=== PATIENT | female | born 1980 | race Caucasian/White ===

== ENCOUNTER 2018-05-31 18:54 | Emergency (ER) | payer OTHER ==
[2018-05-31] MEDS ORDERED: DIPHENHYDRAMINE HCL 50 MG/ML VIAL IV ONE (20:39)
[2018-05-31] MEDS ORDERED: RINGERS SOLUTION,LACTATED 1,000 ML IV ONE (20:39)
--- NOTE | 2018-05-31 20:43 | ER Document Report ---
ED Medical Screen (RME) - General Chief Complaint: Tremor Stated Complaint: SHAKING Time Seen by Provider: 05/31/18 20:36 Notes: Patient is a 37-year-old female presents to the emergency department for generalized tremors. Patient states she does have a history of dystonia and typically has tremors but told that her tremors typically get worse when she has some sort of infection. Patient states she started with generalized vaginal bleeding a few days ago. States she presented to her doctor who did a pelvic exam and told her she had bacterial vaginosis. States she was placed on Flagyl. Patient states today she has noticed that the tremors are "out of control." States typically takes Benadryl for these tremors but that is not helping. Patient states she is also noted increased vaginal bleeding to include clots. Patient states she has "pain everywhere." Upon examination she does have lower pelvic pain. GENERAL: Alert, interacts well. No acute distress. ABDOMEN: Soft, generalized bilateral pelvic pain. Non-distended. Bowel sounds present in all 4 quadrants. EXTREMITIES: Moves all 4 extremities spontaneously. No edema, normal radial and dorsalis pedis pulses bilaterally. No cyanosis. I have greeted and performed a rapid initial assessment of this patient. A comprehensive ED assessment and evaluation of the patient, analysis of test results and completion of the medical decision making process will be conducted by additional ED providers. TRAVEL OUTSIDE OF THE [place] IN LAST 30 DAYS: No - Related Data Allergies/Adverse Reactions: No Known Allergies Allergy (Unverified 05/31/18 19:02) Past Medical History - Social History Frequency of alcohol use: Occasional Renal/ Medical History: Denies: Hx Peritoneal Dialysis Past Surgical History: Reports: Hx Breast Surgery - biopsy, Hx Gynecologic Surgery - d&c, Hx Thyroid Surgery - partial, Hx Tonsillectomy Physical Exam - Vital signs Vitals: Temp Pulse Resp BP Pulse Ox 99.2 F 95 20 131/95 H 98 05/31/18 19:06 05/31/18 19:06 05/31/18 19:06 05/31/18 19:06 05/31/18 19:06 Course - Vital Signs Vital signs: Temp Pulse Resp BP Pulse Ox 99.2 F 95 20 131/95 H 98 05/31/18 19:06 05/31/18 19:06 05/31/18 19:06 05/31/18 19:06 05/31/18 19:06
[2018-05-31 22:28] LABS: ABSOLUTE BASOPHILS # (AUTO) 0.2 10^3/uL (0.0-0.2); ABSOLUTE EOSINOPHILS # (AUTO) 0.3 10^3/uL (0.0-0.6); ABSOLUTE LYMPHOCYTES (AUTO) 4.1 10^3/uL (0.5-4.7); ABSOLUTE MONOCYTES (AUTO) 1.3 10^3/uL (0.1-1.4); ABSOLUTE NEUT (AUTO) 6.1 10^3/uL (1.7-8.2); BASOPHILS % (AUTO) 1.3 % (0-2); EOSINOPHILS % (AUTO) 2.6 % (0-6); HEMATOCRIT 38.8 % (36.0-47.0); HEMOGLOBIN 13.7 g/dL (12.0-15.5); LYMPHOCYTES % (AUTO) 34.4 % (13-45); MEAN CORPUSCULAR HEMOGLOBIN 31.3 pg (27.0-33.4); MEAN CORPUSCULAR HGB CONC 35.3 g/dL (32.0-36.0); MEAN CORPUSCULAR VOLUME 89 fl (80-97); MONOCYTES % (AUTO) 10.6 % (3-13); PLATELET COUNT 209 10^3/uL (150-450); RED BLOOD COUNT 4.38 10^6/uL (3.72-5.28); RED CELL DISTRIBUTION WIDTH 13.2 % (11.5-14.0); SEGMENTED NEUTROPHILS % (AUTO) 51.1 % (42-78); TOTAL CELLS COUNTED % (AUTO) 100 %
--- NOTE | 2018-05-31 22:36 | ER Document Report ---
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 Symptoms started gradually, have been worsening since onset. The patient reports that she has been passing 3-4 tampons of brown, bloody discharge daily for the past 1 week. She states that she is not even close to her cycle, has never had an irregular cycle, and does not describe this discharge as being consistent with cycles that she has had in the past. She states that she was seen in urgent care yesterday, was diagnosed with bacterial vaginosis, started on metronidazole which has not improved her symptoms. Nothing worsens her symptoms. She has not had any fever, nausea, vomiting or abdominal pain. Denies any exposure to sexually transmitted infections. No history of pelvic inflammatory disease. TRAVEL OUTSIDE OF THE [place] IN LAST 30 DAYS: No - Related Data Allergies/Adverse Reactions: No Known Allergies Allergy (Unverified 05/31/18 19:02) Past Medical History - General Information source: Patient - Social History Smoking Status: Never Smoker Frequency of alcohol use: Occasional Drug Abuse: None Family History: Reviewed & Not Pertinent Patient has suicidal ideation: No Patient has homicidal ideation: No Renal/ Medical History: Denies: Hx Peritoneal Dialysis Past Surgical History: Reports: Hx Breast Surgery - biopsy, Hx Gynecologic Surgery - d&c, Hx Thyroid Surgery - partial, Hx Tonsillectomy Review of Systems - Review of Systems Notes: Constitutional: Negative for fever. HENT: Negative for sore throat. Eyes: Negative for visual changes. Cardiovascular: Negative for chest pain. Respiratory: Negative for shortness of breath. Gastrointestinal: Negative for abdominal pain, vomiting or diarrhea. Genitourinary: Positive for vaginal discharge Musculoskeletal: Negative for back pain. Skin: Negative for rash. Neurological: Negative for headaches, weakness or numbness. 10 point ROS negative except as marked above and in HPI. Physical Exam - Vital signs Vitals: Temp Pulse Resp BP Pulse Ox 99.2 F 95 20 131/95 H 98 05/31/18 19:06 05/31/18 19:06 05/31/18 19:06 05/31/18 19:06 05/31/18 19:06 Interpretation: Normal Notes: PHYSICAL EXAMINATION: GENERAL: Well-appearing, well-nourished and in no acute distress. HEAD: Atraumatic, normocephalic. EYES: Pupils equal round and reactive to light, extraocular movements intact, sclera anicteric, conjunctiva are normal. ENT: nares patent, oropharynx clear without exudates. Moist mucous membranes. NECK: Normal range of motion, supple without lymphadenopathy LUNGS: Breath sounds clear to auscultation bilaterally and equal. No wheezes rales or rhonchi. HEART: Regular rate and rhythm without murmurs ABDOMEN: Soft, nontender, normoactive bowel sounds. No guarding, no rebound. No masses appreciated. Pelvic: EXTREMITIES: Normal range of motion, no pitting or edema. No cyanosis. NEUROLOGICAL: No focal neurological deficits. Moves all extremities spontaneously and on command. PSYCH: Normal mood, normal affect. SKIN: Warm, Dry, normal turgor, no rashes or lesions noted. Course - Re-evaluation Re-evalutation: 05/31/18 22:41 Patient presents with what appears to be dysfunctional uterine bleeding. Will proceed with pelvic exam to definitively exclude pelvic plantar disease. Labs otherwise unremarkable. Has apparently had full STI testing at 30 been noted to be normal. Her abdominal exam is completely benign without any areas of focal tenderness, rebound or guarding. Vitals are also within normal limits. 05/31/18 23:58 Pelvic exam does reveal retained tampon. After this was removed foul, purulent drainage began coming from the cervix and was noted to be throughout the vaginal introitus. I briefly consulted with Dr. Reyna for guidance and antibiotic management. Patient will be started on intramuscular ceftriaxone single dose here in the emergency room as well as 2 weeks of metronidazole and doxycycline for coverage. I have advised follow-up in women's clinic within the next 24-48 hours. At this time will discharge with return precautions and follow-up recommendations. Verbal discharge instructions given a the bedside and opportunity for questions given. Medication warnings reviewed. Patient is in agreement with this plan and has verbalized understanding of return precautions and the need for gynecological follow-up in the next 24-72 hours. - Vital Signs Vital signs: Temp Pulse Resp BP Pulse Ox 99.2 F 95 20 131/95 H 98 05/31/18 19:06 05/31/18 19:06 05/31/18 19:06 05/31/18 19:06 05/31/18 19:06 - Laboratory Result Diagrams: 05/31/18 22:15 05/31/18 22:15 Laboratory results interpreted by me: 05/31/18 22:15 WBC 12.0 H - Diagnostic Test Radiology reviewed: Reports reviewed Discharge - Discharge Clinical Impression: Pelvic inflammatory disease Retained vaginal foreign body Qualifiers: Encounter type: initial encounter Qualified Code(s): T19.2XXA - Foreign body in vulva and vagina, initial encounter Condition: Stable Disposition: HOME, SELF-CARE Additional Instructions: Your seen today for retained tampon in your vagina which has triggered an infection in your vagina and pelvic organs. You have been started on doxycycline and metronidazole. Please take these antibiotics until they are gone. You need to follow-up in women's clinic within the next 24-48 hours. You need to return to the emergency department immediately if you develop a fever of greater than 100.4 F, have worsening abdominal cramping or pain, increasing vaginal drainage, pass out, or have any other symptoms that are worrisome to you. Please do not insert anything into your vagina until you have completed antibiotics and are no longer having drainage. Prescriptions: Doxycycline Monohydrate 100 mg PO BID #28 capsule Metronidazole [Flagyl 500 mg Tablet] 500 mg PO Q6H #56 tablet
[2018-05-31 22:52] LABS: ALANINE AMINOTRANSFERASE 21 U/L (9-52); ALBUMIN 4.4 g/dL (3.5-5.0); ALKALINE PHOSPHATASE 78 U/L (38-126); ANION GAP 9 (5-19); ASPARTATE AMINO TRANSFERASE 26 U/L (14-36); BILIRUBIN,DIRECT 0.3 mg/dL (0.0-0.4); BILIRUBIN,TOTAL 0.4 mg/dL (0.2-1.3); BLOOD UREA NITROGEN 9 mg/dL (7-20); CALCIUM 9.5 mg/dL (8.4-10.2); CARBON DIOXIDE 26 mmol/L (22-30); CHLORIDE 107 mmol/L (98-107); GLUCOSE 93 mg/dL (75-110); POTASSIUM 4.5 mmol/L (3.6-5.0); SODIUM 141.8 mmol/L (137-145); TOTAL PROTEIN 7.2 g/dL (6.3-8.2)
[2018-05-31 23:10] LABS: APPEARANCE,URINE SLIGHTLY-CLOUDY; BILIRUBIN,URINE NEGATIVE (NEGATIVE); COLOR,URINE YELLOW; GLUCOSE, URINE NEGATIVE (NEGATIVE); KETONES,URINE NEGATIVE (NEGATIVE); LEUKOCYTE ESTERASE,URINE NEGATIVE (NEGATIVE); NITRITE,URINE NEGATIVE (NEGATIVE); PROTEIN,URINE NEGATIVE (NEGATIVE); URINE SPECIFIC GRAVITY 1.014; UROBILINOGEN,URINE NEGATIVE mg/dL (<2.0)
--- NOTE | 2018-05-31 23:18 | RADIOLOGY REPORT (SQ) ---
EXAM DESCRIPTION: US TRANSVAGINAL COMPLETED DATE/TME: 05/31/2018 20:41 CLINICAL HISTORY: 37 years, Female, pain/bleeding COMPARISON: None. TECHNIQUE: Transverse and longitudinal transvaginal sonographic images of the pelvis LIMITATIONS: None. FINDINGS: The uterus measures 9.1 x 5.9 x 4.6 cm. The endometrium measures 10 mm in thickness. Nabothian cysts are incidentally noted. The right ovary measures 4.7 x 3.8 x 4.0 cm, the left 2.9 x 1.8 x 1.7 cm. Doppler and spectral analysis with color flow was utilized. Arterial and venous flow to both ovaries. There is a complex 4.1 x 2.9 x 2.9 cm mass of the right ovary. This has low level internal echoes and septations. This may reflect hemorrhagic or complex follicular cyst. Endometrioma could have a similar appearance. Other etiologies cannot be excluded. Small left ovarian follicles are noted. No free fluid. IMPRESSION: Complex mass of the right ovary may reflect complex/hemorrhagic dominant follicle or endometrioma with other etiologies not excluded. Please refer to below criteria for recommended follow-up Recommendations for f/u of ovarian complex cysts (1): Endometrioma: <= 7 cm: US f/u 6-12 wks. If not surgically resected, US f/u annually. >7 cm: Consider MR w/IVC or surgical evaluation. If not surgically resected, US f/u annually. Dermoid: <= 5 cm: MR w/IV contrast. If not surgically resected, US f/u annually. >5 cm: Surgical evaluation. If not surgically resected, MR w/IVC; then US f/u annually Indeterminate cyst - multiple thin <=3 mm septations: Any size in any age: Consider surgical evaluation. Indeterminate cyst - non-hyperechoic nodule w/o blood flow: Any size in any age: Consider MR w/IVC or surgical evaluation. Indeterminate cyst - other, not classic for but suggestive of hemorrhagic cyst, endometrioma or dermoid: Pre-menopause: <= 7 cm: US f/u 6-12 weeks. If unchanged, continue f/u with US or consider MR w/IVC. If these do not confirm endometrioma or dermoid, consider surgical evaluation. >7 cm: Consider MR w/IVC or surgical evaluation. Post-menopause (>=1 year from last menstrual period): Any size: Consider surgical evaluation. Cyst worrisome for malignancy (thick, irregular >=3 mm septations or nodule with blood flow): Any size in any age: Consider surgical evaluation. (1) Recommendations based upon the 2010 SRU Consensus Conference Statement on the Management of Asymptomatic Ovarian and Other Adnexal Cysts Imaged at US: Radiology. 2009;256(3):943-54 copyright 2011 [employer]- All Rights Reserved
[2018-05-31 23:46] LABS: T.VAGINALIS (WET MOUNT) NO TRICHOMONAS SEEN; WBCS (WET MOUNT) 4+ WBCS SEEN; YEAST (WET MOUNT) YEAST SEEN
[2018-05-31 23:47] LABS: BACTERIA (WET MOUNT) 4+ BACTERIA SEEN; RBCS (WET MOUNT) FEW RBCS SEEN
[2018-06-01] MEDS ORDERED: METRONIDAZOLE 500 MG TABLET PO ONE (00:06)
[2018-06-01] MEDS ORDERED: CEFTRIAXONE INJ 1000 MG VIAL IM ONE (00:06)
[2018-06-01] MEDS ORDERED: DOXYCYCLINE HYCLATE 100 MG TABLET PO ONE (00:06)
[2018-06-01] MEDS ORDERED: LIDOCAINE 1% INJ-PF (10 MG/ML) 30 ML SDV NEB ONE (00:06)
[2018-06-01 00:36] LABS: CHLAM PCR NOT DETECTED (NOT DETECT); GON PCR NOT DETECTED (NOT DETECT)
[2018-06-01 01:32] VITALS: BP 115/84
== END 2018-06-01 01:32 | disposition home or self-care (01) ==
LOC: ER 18:54
DX: N73.9 Female pelvic inflammatory disease, unspecified (principal); T19.2XXA Foreign body in vulva and vagina, initial encounter; X58.XXXA Exposure to other specified factors, initial encounter
CPT/HCPCS: 94640; 99284; 96372; 96361; 96374; 36415; 87210; 85025; 81025; 80053; 81001; 87491; 87591; 76830; 93976; J1200; J3490; J0696; J7120

== ENCOUNTER 2018-06-04 15:04 | Emergency (ER) | payer OTHER ==
--- NOTE | 2018-06-04 15:29 | RADIOLOGY REPORT (SQ) ---
EXAM DESCRIPTION: CT HEAD WITHOUT COMPLETED DATE/TIME: 06/04/2018 3:15 pm REASON FOR STUDY: stroke like symptoms COMPARISON: None. TECHNIQUE: Axial images acquired through the brain without intravenous contrast. Images reviewed wi th bone, brain and subdural windows. Additional sagittal and coronal reconstructions were generated. Images stored on PACS. All CT scanners at this facility use dose modulation, iterative reconstruction, and/or weight based d osing when appropriate to reduce radiation dose to as low as reasonably achievable (ALARA). [facility]: Dose Right [facility]: CareDose [facility]: Dose Right [facility]: Teradose 4D [facility]: [place] RADIATION DOSE: CT Rad equipment meets quality standard of care and radiation dose reduction techniq ues were employed. CTDIvol: 53.2 mGy. DLP: 1044 mGy-cm. mGy. LIMITATIONS: None. FINDINGS: VENTRICLES: Normal size and contour. CEREBRUM: No masses. No hemorrhage. No midline shift. No evidence for acute infarction. Normal gra y/white matter differentiation. No areas of low density in the white matter. CEREBELLUM: No masses. No hemorrhage. No alteration of density. No evidence for acute infarction. Post occipital craniotomy for low lying cerebellar tonsils. No encroachment on the cerebellar tonsi ls, medulla or brainstem on sagittal reconstruction images 25-30. EXTRAAXIAL SPACES: No fluid collections. No masses. ORBITS AND GLOBE: No intra- or extraconal masses. Normal contour of globe without masses. CALVARIUM: Post occipital craniotomy for low lying cerebellar tonsils. PARANASAL SINUSES: No fluid or mucosal thickening. SOFT TISSUES: No mass or hematoma. OTHER: No other significant finding. IMPRESSION: No acute changes EVIDENCE OF ACUTE STROKE: NO. COMMENT: Pertinent findings on the imaging study reported as a CRITICAL RESULT to FER JANSEN MD at15:22 on 06/04/2018. Category of Critical Result: CT code stroke Quality ID # [id number]: Final reports with documentation of one or more dose reduction techniques (e.g., Au tomated exposure control, adjustment of the mA and/or kV according to patient size, use of iterative reconstruction technique) TECHNICAL DOCUMENTATION: JOB ID: [id number] [employer]- All Rights Reserved Reading location - IP/workstation name: [email or web address]
[2018-06-04 16:17] LABS: ABSOLUTE EOSINOPHILS # (AUTO) 0.3 10^3/uL (0.0-0.6); ABSOLUTE LYMPHOCYTES (AUTO) 2.7 10^3/uL (0.5-4.7); ABSOLUTE MONOCYTES (AUTO) 1.2 10^3/uL (0.1-1.4); ABSOLUTE NEUT (AUTO) 5.7 10^3/uL (1.7-8.2); BASOPHILS % (AUTO) 0.4 % (0-2); EOSINOPHILS % (AUTO) 3.4 % (0-6); HEMATOCRIT 40.7 % (36.0-47.0); HEMOGLOBIN 14.2 g/dL (12.0-15.5); LYMPHOCYTES % (AUTO) 27.4 % (13-45); MEAN CORPUSCULAR HEMOGLOBIN 30.8 pg (27.0-33.4); MEAN CORPUSCULAR HGB CONC 34.9 g/dL (32.0-36.0); MEAN CORPUSCULAR VOLUME 88 fl (80-97); MONOCYTES % (AUTO) 11.8 % (3-13); PLATELET COUNT 262 10^3/uL (150-450); RED BLOOD COUNT 4.61 10^6/uL (3.72-5.28); RED CELL DISTRIBUTION WIDTH 13.1 % (11.5-14.0); TOTAL CELLS COUNTED % (AUTO) 100 %; WHITE BLOOD COUNT 9.9 10^3/uL (4.0-10.5)
[2018-06-04 16:35] LABS: ALANINE AMINOTRANSFERASE 24 U/L (9-52); ALBUMIN 4.4 g/dL (3.5-5.0); ALKALINE PHOSPHATASE 77 U/L (38-126); ANION GAP 9 (5-19); ASPARTATE AMINO TRANSFERASE 29 U/L (14-36); BILIRUBIN,DIRECT 0.2 mg/dL (0.0-0.4); BILIRUBIN,TOTAL 0.2 mg/dL (0.2-1.3); BLOOD UREA NITROGEN 17 mg/dL (7-20); CALCIUM 9.7 mg/dL (8.4-10.2); CARBON DIOXIDE 26 mmol/L (22-30); CHLORIDE 101 mmol/L (98-107); GLUCOSE 102 mg/dL (75-110); POTASSIUM 4.7 mmol/L (3.6-5.0); SODIUM 136.4 mmol/L (137-145); TOTAL PROTEIN 7.5 g/dL (6.3-8.2)
--- NOTE | 2018-06-04 16:49 | ER Document Report ---
ED Neuro Symptoms/Deficit - General Chief Complaint: S/S of Possible Stroke Stated Complaint: LEFT SIDE FACIAL NUMBNESS Time Seen by Provider: 06/04/18 15:27 Primary Care Provider: [facility] [Provider Group] - Follow up in 1 week Notes: Patient says she is having trouble talking since about noon today. She has not felt well all this week. Was seen here Thursday and found to have a retained tampon which was removed. She also had a very large irregular apparent ovarian cyst that needed follow-up. She was put on doxycycline and Flagyl and advised to follow-up with a local OPERATIONS RESEARCH MANAGER. She has not made an appointment to see them yet. She has continued to feel ill and has not worked this week. This morning, she slept in, longer than usual and then at noon she began having difficulty speaking. Did not have any difficulty standing or walking or using any of her 4 extremities. She is also having uncontrollable shaking episodes. Patient has had bilateral salpingectomies. Patient also had a Chiari malformation surgery in 2001. She has a genetic clotting disorder, but is not currently on any treatment for it. She had half of her thyroid removed for cancer. She takes Benadryl for dystonia in her neck from a previous accident. TRAVEL OUTSIDE OF THE [place] IN LAST 30 DAYS: No - Related Data Allergies/Adverse Reactions: No Known Allergies Allergy (Verified 06/04/18 15:08) Past Medical History - Social History Smoking Status: Unknown if Ever Smoked Family History: Reviewed & Not Pertinent Patient has suicidal ideation: No Patient has homicidal ideation: No Psychiatric Medical History: Reports: None Past Surgical History: Reports: Hx Breast Surgery - biopsy, Hx Gynecologic Surgery - d&c, bilateral salpingectomies., Hx Thyroid Surgery - partial removal for cancer., Hx Tonsillectomy, Other - Surgery for Chiari malformation. Review of Systems - Review of Systems Notes: REVIEW OF SYSTEMS: CONSTITUTIONAL : Denies fever. EENT: Denies eye, ear, nose or mouth or throat pain or other symptoms. CARDIOVASCULAR: Denies chest pain. RESPIRATORY: Denies cough, chest congestion, or shortness of breath. GASTROINTESTINAL: Denies abdominal pain or nausea, vomiting, or diarrhea. GENITOURINARY: Denies difficulty or painful urinating, urinary frequency, blood in urine. MUSCULOSKELETAL: Denies back or neck pain. Denies joint pain or swelling. SKIN: Denies rash or skin lesions. NEUROLOGICAL: See HPI regarding speech and shaking episodes. Denies LOC or altered mental status. Denies sensory loss or motor deficits. ALL OTHER SYSTEMS REVIEWED AND NEGATIVE. Physical Exam - Vital signs Vitals: Resp Pulse Ox 17 97 06/04/18 15:27 06/04/18 15:27 Interpretation: Normal Notes: PHYSICAL EXAMINATION: GENERAL: Well-appearing, in no acute distress. Frequently has diffuse random jerking of her body, including all 4 extremities and her face and head and neck. Vital signs are all essentially normal. HEAD: Atraumatic, normocephalic. EYES: Pupils equal round and reactive to light, extraocular movements intact. ENT: oropharynx clear without exudates. Moist mucous membranes. NECK: Normal range of motion, supple. LUNGS: Breath sounds clear and equal bilaterally. HEART: Regular rate and rhythm without murmurs. ABDOMEN: Soft, nontender. No guarding or rebound. No masses. BACK: No tenderness throughout entire back. EXTREMITIES: Normal range of motion without pain. NEUROLOGICAL: Speech is stuttering and stammering intermixed with normal words and pronunciations followed by recurrent stuttering and stammering. During my examination the patient has diffuse random jerking and twitching of her 4 extremities as well as her head. Cranial nerves are all intact. Extraocular movements are normal. Patient can stand and walk without assistance. Normal sensory, motor, and reflex (+1 bilateral patella) exams. Awake, alert, and oriented x3. Cranial nerves normal. No facial muscle asymmetry. PSYCH: Normal mood, normal affect. SKIN: Warm, dry, no rashes. Course - Re-evaluation Re-evalutation: 06/04/18 17:12 Reevaluated patient she still having her symptoms. I advised her that there is nothing physiologically in medicine that could produce the symptoms that she is having. I advised her CT scan of her head is normal. All of her lab studies are normal. I asked the patient if she is under a lot of stress and she said no indeed. I asked her if she felt anxious or nervous or felt as if she was having anxiety, and she denied. I concluded by telling her that there is nothing in medicine that would cause the symptoms she is having. Patient was discharged ambulatory. - Vital Signs Vital signs: Temp Pulse Resp BP Pulse Ox 89 19 124/74 98 06/04/18 16:12 06/04/18 16:12 06/04/18 16:12 06/04/18 16:12 - Laboratory Result Diagrams: 06/04/18 15:24 06/04/18 15:24 - Diagnostic Test Radiology reviewed: Image reviewed, Reports reviewed - CT scan of the brain is normal. - EKG Interpretation by Vt EKG shows normal: Sinus rhythm Rate: Normal Rhythm: NSR Additional EKG results interpreted by me: 06/04/18 17:11 EKG is normal. Discharge - Discharge Clinical Impression: Dysphasia Condition: Stable Disposition: HOME, SELF-CARE Additional Instructions: Difficulty with speech. You have been evaluated for difficulties with her speech and shaking episodes. Your workup is entirely normal today. No evidence of a stroke. NORMAL EXAM AND WORKUP: At this time, your examination and workup show no significant abnormality. No significant abnormal physical findings were noted. All laboratory, EKG, and imaging (x-ray, CT scans, ultrasound) studies that were ordered show no significant abnormality. Although your examination and all studies that were ordered showed no significant abnormal finding, there are no examinations and no studies that are 100% accurate. There is always the possibility that some abnormality could exist and not be detected with physical examination or within the limits and capabilities of laboratory and other studies. You should return or follow up as you were instructed on your visit today for further evaluation if your symptoms do not resolve. On your previous visit here 4 days ago, there was a large cyst found on 1 of your ovaries. You were advised On your previous visit here about 4 days ago, your ultrasound of your pelvis showed a large cyst on 1 of your ovaries. You are advised again to make an appointment to follow-up with a AUXILIARY ENGINEER doctor to follow this cyst. I am providing you with the contact information for women's health for this condition. FOLLOW-UP CARE: If you have been referred to a physician for follow-up care, call the physicians office for an appointment as you were instructed or within the next two days. If you experience worsening or a significant change in your symptoms, notify the physician immediately or return to the Emergency Department at any time for re-evaluation. Forms: Return to Work Referrals: [facility] [Provider Group] - Follow up in 1 week
[2018-06-04 17:09] VITALS: BP 140/89
--- NOTE | 2018-06-04 20:50 | EKG REPORT ---
SEVERITY:- BORDERLINE ECG - SINUS RHYTHM PROBABLE LEFT ATRIAL ABNORMALITY : Confirmed by: Roseline Oneill MD 04-Jun-2018 20:49:32
== END 2018-06-04 17:09 | disposition home or self-care (01) ==
LOC: ER 15:04
DX: R13.10 Dysphagia, unspecified (principal); R25.1 Tremor, unspecified
CPT/HCPCS: 36415; 70450; 80053; 82962; 85025; 93005; 93010; 99284